=== PATIENT | male | born 1995 | race Caucasian/White ===

== ENCOUNTER 2021-02-03 12:13 | Emergency (ER) | payer OTHER ==
--- NOTE | 2021-02-03 12:49 | EDM.PDOC ---
ED HPI GENERAL MEDICAL PROBLEM - General Chief Complaint: Cardiovascular Problem Stated Complaint: SOB/CHEST TIGHTNESS Time Seen by Provider: 02/03/21 12:23 Source of Information: Reports: Patient, RN Notes Reviewed History Limitations: Reports: No Limitations - History of Present Illness INITIAL COMMENTS - FREE TEXT/NARRATIVE: Patient is a 25-year-old male who presents to the ED for the evaluation of his chest tightness and shortness of breath. Patient notes he has been having issues with this for quite some time. Roughly 1-1/2 years ago, he wore a environmental monitoring specialist for 30 days that he was having some episodes but they did not catch any episodes like he was experiencing. Patient notes that he developed some chest tightness and shortness of breath starting roughly 2 days ago. He notes that he just feels like he cannot catch his breath, and that his heart is beating out of his chest. 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 He notes that he gets tested for COVID-19 on a regular basis and does not feel sick otherwise so does not have any concerns about COVID-19 at today's visit. He does state that roughly a month ago he was walking through [email or web address] with some friends, and he checked his apple watch when he felt his heart racing, and he noted that his heart rate was in the 190s. He was not sure how accurate that was, so he did not get evaluated at that time. He does note that he was not dizzy or lightheaded at that time. He states that he has not been able to get much sleep over the last 2 or 3 nights due to the discomfort he is experiencing. Does note that he drinks a Monster energy drink pretty much daily, and he did have half of a, Frappuccino earlier today as well. He states that he does use preworkout as well when he goes to the gym, but does not feel the symptoms at the gym. He denies any fevers or chills, nausea/vomiting/diarrhea, he does note a chronic cough. 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 [No Known Home Meds] 01/06/18 [History] Past Medical History - Past Health History Medical/Surgical History: Denies Medical/Surgical History - Infectious Disease History Infectious Disease History: Reports: Chicken Pox, Influenza Social & Family History - Family History Family Medical History: No Pertinent Family History - Tobacco Use Tobacco Use Status *Q: Current Every Day Tobacco User - Recreational Drug Use Recreational Drug Use: No ED ROS GENERAL - Review of Systems Review Of Systems: Comprehensive ROS is negative, except as noted in HPI. ED EXAM, GENERAL - Physical Exam Exam: See Below Exam Limited By: No Limitations General Appearance: Alert, WD/WN, No Apparent Distress Respiratory/Chest: No Respiratory Distress, Lungs Clear, Normal Breath Sounds, No Accessory Muscle Use, Chest Non-Tender Cardiovascular: Normal Peripheral Pulses, Regular Rate, Rhythm, No Edema Peripheral Pulses: 2+: Radial (L), Radial (R) Extremities: Normal Inspection, Normal Capillary Refill Neurological: Alert, Oriented, Normal Cognition, No Motor/Sensory Deficits Psychiatric: Normal Affect, Normal Mood Skin Exam: Warm, Dry, Intact, Normal Color, No Rash #1 Interpretation EKG Date: 02/03/21 Time: 12:22 Rhythm: NSR Rate (Beats/Min): 87 [place]: Normal P-Wave: Present QRS: Normal ST-T: Normal QT: Normal Comparison: NA - No Prior EKG EKG Interpretation Comments: No obvious ischemia or acute ST changes noted, reviewed by myself and Dr. Kim. Course - Vital Signs Last Recorded V/S: Last Vital Signs Temp 99.0 F 02/03/21 12:23 Pulse 86 02/03/21 12:23 Resp 18 02/03/21 12:23 BP 150/79 H 02/03/21 12:23 Pulse Ox 100 02/03/21 12:23 - Orders/Labs/Meds Orders: Active Orders 24 hr Category Date Time Status EKG Documentation Completion [RC] STAT Care 02/03/21 12:28 Ordered Labs: Laboratory Tests 02/03/21 02/03/21 Range/Units 12:55 12:55 WBC 7.53 (4.23-9.07) K/mm3 RBC 4.81 (4.63-6.08) M/mm3 Hgb 14.0 (13.7-17.5) gm/dl Hct 41.0 (40.1-51.0) % MCV 85.2 (79.0-92.2) fl MCH 29.1 (25.7-32.2) pg MCHC 34.1 (32.2-35.5) g/dl RDW Std Deviation 41.8 (35.1-43.9) fL Plt Count 206 (163-337) K/mm3 MPV 9.5 (9.4-12.3) fl Neut % (Auto) 63.2 (34.0-67.9) % Lymph % (Auto) 24.2 (21.8-53.1) % [place] % (Auto) 10.1 (5.3-12.2) % Eos % (Auto) 1.9 (0.8-7.0) Baso % (Auto) 0.3 (0.1-1.2) % Neut # (Auto) 4.77 (1.78-5.38) K/mm3 Lymph # (Auto) 1.82 (1.32-3.57) K/mm3 [place] # (Auto) 0.76 (0.30-0.82) K/mm3 Eos # (Auto) 0.14 (0.04-0.54) K/mm3 Baso # (Auto) 0.02 (0.01-0.08) K/mm3 Sodium 142 (136-145) mEq/L Potassium 3.5 (3.5-5.1) mEq/L Chloride 105 (98-107) mEq/L Carbon Dioxide 24 (21-32) mEq/L Anion Gap 16.5 H (5-15) BUN 15 (7-18) mg/dL Creatinine 1.3 (0.7-1.3) mg/dL Est Cr Clr Drug Dosing 89.69 mL/min Estimated GFR (MDRD) > 60 (>60) mL/min BUN/Creatinine Ratio 11.5 L (14-18) Glucose 102 (74-106) mg/dL Calcium 9.2 (8.5-10.1) mg/dL Magnesium 1.9 (1.8-2.4) mg/dl Total Bilirubin 0.5 (0.2-1.0) mg/dL AST 40 H (15-37) U/L ALT 57 (16-63) U/L Alkaline Phosphatase 54 (46-116) U/L Troponin I < 0.017 (0.00-0.056) ng/mL Total Protein 7.1 (6.4-8.2) g/dl Albumin 4.2 (3.4-5.0) g/dl Globulin 2.9 gm/dL Albumin/Globulin Ratio 1.5 (1-2) TSH 3rd Generation 2.059 (0.358-3.74) uIU/mL - Re-Assessments/Exams Free Text/Narrative Re-Assessment/Exam: 02/03/21 12:50 Patient presents to the ED for the evaluation of his chest tightness and shortness of breath. EKG done at time of triage demonstrates normal sinus rhythm with no acute ST change or abnormalities reviewed by myself and Dr. Tawnya mijares. We will go ahead and get baseline labs to include CBC, CMP, troponin, magnesium level and a TSH for evaluation to see if something could be happening metabolically. I did go over possibility of outpatient cardiac monitoring if everything looks okay, the patient notes that he will try to get this set up in [place] when he moves her on Monday. 02/03/21 13:41 Patient's chest x-ray demonstrates no focal abnormalities, CBC has resulted and is unremarkable. 02/03/21 14:02 Labs are done, and are unremarkable. He did find out the provider he had seen in the past, this is Mariah Real. I did ask him to get in contact with her regarding transferring provider to [place], as she might know better options on who to go see. Patient was amenable to this plan. I did offer to do a 48-hour Holter monitor but he declined at this time due to his impending move to [place], he notes that he will follow up with a provider in that area for ongoing cardiac management. Departure - Departure Time of Disposition: 14:03 Disposition: Home, Self-Care 01 Condition: Good Clinical Impression: Chest tightness Instructions: Nonspecific Chest Pain, Adult, [id number] Referrals: PCP,None [Primary Care Provider] - Forms: ED Department Discharge Additional Instructions: You were seen in this ER for your chest discomfort/shortness of breath. EKG, chest x-ray, laboratory evaluation done at today's visit are all unremarkable. 48-hour Holter monitoring was offered, but you declined due to your impending move to [place], highly and strongly recommend you follow-up with a provider either in [place], or at the [facility] in [place] for ongoing cardiac management highly recommend you get prolonged cardiac monitoring to see if they can catch 1 of these episodes. Try to decrease the amount of caffeine you use in a daily basis to see if this helps relieve some of your symptoms. Please return to the ER at any time if symptoms change or worsen. Sepsis Event Note (ED) - Evaluation Sepsis Screening Result: No Definite Risk - Focused Exam Vital Signs: Vital Signs Temp Pulse Resp BP Pulse Ox 02/03/21 12:23 99.0 F 86 18 150/79 H 100 - My Orders Last 24 Hours: My Active Orders 02/03/21 12:28 EKG Documentation Completion [RC] STAT - Assessment/Plan Last 24 Hours: My Active Orders 02/03/21 12:28 EKG Documentation Completion [RC] STAT
--- NOTE | 2021-02-03 13:06 | CR ---
Chest: Portable view of the chest was obtained. Comparison: No prior chest imaging is available. Heart size and mediastinum are normal. Lungs are clear with no acute parenchymal change. No acute osseous abnormality is appreciated. Impression: 1. Nothing acute is seen on portable chest x-ray. Diagnostic code #1
== END 2021-02-03 14:14 | disposition home or self-care (01) ==
LOC: JD.ED 12:13
DX: R07.89 Other chest pain (principal); Z72.0 Tobacco use
CPT/HCPCS: 36415; 71045; 71045-26; 80053; 83735; 84443; 84484; 85025; 93005; 93010; 99283; 99285-25